=== PATIENT | female | born 1955 | race African-American/Black ===

== ENCOUNTER 2016-09-11 15:41 | Emergency (ER) | payer MEDICARE, OTHER ==
[~2016-09-11] VITALS: Ht 165.1 cm; Wt 95.0 kg
[2016-09-11 15:45] VITALS: BP 225/112; PULSE 80; RESP 28; TEMP 97.6; O2SAT 96
[2016-09-11] MEDS ORDERED: SODIUM CHLORIDE 0.9% FLUSH 5 ML FLUSH IVF PRN (16:15)
[2016-09-11] MEDS ORDERED: methylPREDNISolone SOD SUCC 125 MG/2 ML VIAL IVP ONE (16:15)
[2016-09-11] MEDS: RESP: ALBUTEROL 2.5 MG/IPRATROPIUM 0.5 MG NEB (SCH) INH ×2 (16:19→16:20)
--- NOTE | 2016-09-11 16:22 | PD ---
HPI Chief Complaint: Respiratory Distress Time Seen by Provider: 16:01 Travel History International Travel<30 days: No Contact w/Intl Traveler<30days: No Traveled to known affect area: No History of Present Illness HPI This is a 61 year old female who presents to the emergency department with shortness of breath. she reports one hour ago she was mopping her floors with bleach and vinegar and she started to develop difficulty breathing with burning in her throat and her eyes. She decided to come to the emergency department. Pt. denies fevers, chills, vomiting, chest pain, lightheadedness or headache. PFSH Past Medical History Medical History: Denies Significant Hx Cardiovascular Problems: Yes (htn) ?: Not Social History Tobacco Use: No Allergies-Medications (Allergen,Severity, Reaction): Coded Allergies: No Known Allergies (Unverified , 09/11/16) Review of Systems Except as stated in HPI: all other systems reviewed are Neg Physical Exam Narrative GENERAL:Well appearing, no acute distress SKIN: Warm and dry. HEAD: Atraumatic. Normocephalic. EYES: Pupils equal and round. No injection or drainage. ENT: Moist mucous membranes NECK: Trachea midline. CARDIOVASCULAR: Regular rate and rhythm. No murmur appreciated. RESPIRATORY: Diffusely wheezing with no increased work of breathing. GASTROINTESTINAL: Abdomen soft, non-tender, nondistended. MUSCULOSKELETAL: No obvious deformities. NEUROLOGICAL: Awake and alert. No obvious cranial nerve deficits. Moving all extremities. PSYCHIATRIC: Appropriate mood and affect; insight and judgment normal. Data Data Last Documented VS Vital Signs Date Time Temp Pulse Resp B/P Pulse Ox O2 Delivery O2 Flow Rate FiO2 09/11/16 16:52 20 95 Room Air 09/11/16 15:45 97.6 80 225/112 Orders Complete Blood Count With Diff (09/11/16 16:10) Comprehensive Metabolic Panel (09/11/16 16:10) B-Type Natriuretic Peptide (09/11/16 16:10) Iv Access Insert/Monitor (09/11/16 16:10) Ecg Monitoring (09/11/16 16:10) Oximetry (09/11/16 16:10) Oxygen Administration (09/11/16 16:10) Chest, Single Ap (09/11/16 16:10) Sodium Chloride 0.9% Flush (Ns Flush) (09/11/16 16:15) Methylprednisolone So Succ Inj (Solumedr (09/11/16 16:15) Albuterol-Ipratropium Neb (Duoneb Neb) (09/11/16 16:15) Ondansetron Inj (Zofran Inj) (09/11/16 16:45) MDM Medical Decision Making Medical Screen Exam Complete: Yes Emergency Medical Condition: Yes Interpretation(s) Afebrile, tachypneic, hypertensive Differential Diagnosis Chemical pneumonitis, pneumonia, asthma exacerbation Narrative Course This is a 61-year-old female who presents to the emergency department with shortness of breath in the setting of inhaling bleach vinegar mixture. She was diffusely wheezing on arrival and to Neck. She was placed on a monitor and an IV was established. Labs are obtained and a chest x-ray was obtained. Patient was given serial bronchodilator treatments and IV steroids. She feels much better and on reassessment she is no longer wheezing. Patient will be discharged home with steroids and an albuterol inhaler. Diagnosis Primary Impression: Chemical pneumonitis Patient Instructions: General Instructions Additional Instructions: If you develop severe shortness of breath, chest pain, or difficulty breathing return to the emergency department. Use albuterol every 4 hours for the next 2 days. Then use as needed for wheezing. Complete your course of steroids. Follow up with your primary care physician in 2-3 days if your symptoms have not improved. Med/Other Pt SpecificInfo: Prescription(s) given Scripts Prednisone 20 Mg Tab40 Mg PO DAILY 4 Days Ref 0 Prov:Rochelle Noonan MD 09/11/16 Albuterol 8.5 GM Inh (Proair Hfa 8.5 GM Inh)90 Mcg/Act Aer2 Puff INH Q4-6H PRN ( SHORTNESS OF BREATH) #1 INHALER Ref 0 108 mcg/actuation Prov:Rochelle Noonan MD 09/11/16 Disposition: 01 DISCHARGE HOME Condition: Stable Rochelle Noonan MD Sep 11, 2016 16:22
[2016-09-11] MEDS ORDERED: ONDANSETRON HCL 4 MG/2 ML VIAL IV ONE (16:45)
[2016-09-11 16:52] VITALS: RESP 20; O2SAT 95
[2016-09-11] MEDS ORDERED: PRED20 PO (17:04)
[2016-09-11] MEDS ORDERED: ALBUAER3 INH (17:04)
--- NOTE | 2016-09-11 17:06 | RADRPT ---
EXAM DATE/TIME: 09/11/2016 16:29 [facility] COMPARISON: No previous studies available for comparison. INDICATIONS : Short of breath after chemical inhalation. MEDICAL HISTORY : None. SURGICAL HISTORY : None. ENCOUNTER: Initial ACUITY: 1 day PAIN SCORE: 0/10 LOCATION: Bilateral chest FINDINGS: Single AP view of the chest. The lungs are clear. Cardiomediastinal silhouette within normal limits. No evidence of pleural effusion or pneumothorax. CONCLUSION: No acute cardiopulmonary disease identified. Fede Hamilton MD on September 11, 2016 at 17:04 Board Certified Radiologist. This report was verified electronically.
[2016-09-11 17:07] VITALS: BP 162/96; PULSE 79; RESP 20; O2SAT 97
[2016-09-11 17:11] LABS: AUTOMATED NEUTROPHIL # 2.5 TH/MM3 (1.8-7.7); BASOPHIL # 0.1 TH/MM3 (0-0.2); BASOPHIL % 0.9 % (0.0-2.0); EOSINOPHIL # 0.1 TH/MM3 (0-0.4); HEMATOCRIT 38.3 % (35.0-46.0); HEMO FLAGS DIFF FINAL; LYMPHOCYTE # 3.1 TH/MM3 (1.0-4.8); MEAN CELL VOLUME 78.1 FL (80.0-100.0); MEAN CORPUSCULAR HEMOGLOBIN 25.7 PG (27.0-34.0); MEAN CORPUSCULAR HGB CONC 32.9 % (32.0-36.0); MONO % 4.4 % (0.0-8.0); NEUT % 41.7 % (16.0-70.0); PLATELET COUNT 256 TH/MM3 (150-450); WHITE BLOOD COUNT 6.1 TH/MM3 (4.0-11.0)
[2016-09-11 17:32] LABS: ALT (GPT) 21 U/L (10-53); ANION GAP 4 MEQ/L (5-15); AST (GOT) 13 U/L (15-37); BICARBONATE 32.3 MEQ/L (21.0-32.0); BLOOD UREA NITROGEN 9 MG/DL (7-18); CHLORIDE 104 MEQ/L (98-107); GLOMERULAR FILTRATION RATE 69 ML/MIN (>89); POTASSIUM 3.4 MEQ/L (3.5-5.1); SODIUM (NA) 140 MEQ/L (136-145)
[2016-09-11 17:34] LABS: ALKALINE PHOSPHATASE 97 U/L (45-117); TOTAL BILIRUBIN ADULT 0.3 MG/DL (0.2-1.0)
== END 2016-09-11 17:42 | disposition home or self-care (01) ==
LOC: NEPC 15:41
DX: J68.0 Bronchitis and pneumonitis due to chemicals, gases, fumes and vapors (principal); T62.8X1A Toxic effect of other specified noxious substances eaten as food, accidental (unintentional), initial encounter; T54.91XA Toxic effect of unspecified corrosive substance, accidental (unintentional), initial encounter; I10 Essential (primary) hypertension; Y92.009 Unspecified place in unspecified non-institutional (private) residence as the place of occurrence of the external cause
CPT/HCPCS: 71010; 80053; 83880; 85025; 94640; 94664; 96374; 96375; 99283; J2405; J2930